=== PATIENT | female | born 1995 | race Caucasian/White ===

== ENCOUNTER 2017-03-17 22:07 | Emergency (ER) | payer OTHER ==
[2017-03-17 22:15] VITALS: BP 120/89; PULSE 89; RESP 16; O2SAT 99
[2017-03-17] MEDS ORDERED: HALOPERIDOL LACTATE 5 MG/ML AMP ONE (22:16)
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
[2017-03-17] MEDS ORDERED: HALOPERIDOL LACTATE 5 MG/ML AMP IM ONE (23:15)
[2017-03-17 23:19] LABS: AUTOMATED NEUTROPHIL # 8.8 TH/MM3 (1.8-7.7); BASOPHIL # 0.1 TH/MM3 (0-0.2); BASOPHIL % 0.6 % (0.0-2.0); EOSINOPHIL # 0.1 TH/MM3 (0-0.4); EOSINOPHIL % 0.8 % (0.0-4.0); HEMATOCRIT 41.2 % (35.0-46.0); HEMO FLAGS DIFF FINAL; LYMPH % 18.7 % (9.0-44.0); LYMPHOCYTE # 2.3 TH/MM3 (1.0-4.8); MEAN CELL VOLUME 89.3 FL (80.0-100.0); MEAN CORPUSCULAR HGB CONC 33.6 % (32.0-36.0); MONO % 9.3 % (0.0-8.0); NEUT % 70.6 % (16.0-70.0); PLATELET COUNT 268 TH/MM3 (150-450); RED BLOOD COUNT 4.62 MIL/MM3 (4.00-5.30); RED CELL DISTRIBUTION WIDTH 13.7 % (11.6-17.2); WHITE BLOOD COUNT 12.5 TH/MM3 (4.0-11.0)
[2017-03-17 23:32] LABS: ANION GAP 14 MEQ/L (5-15); BICARBONATE 19.8 MEQ/L (21.0-32.0); BLOOD UREA NITROGEN 16 MG/DL (7-18); CHLORIDE 107 MEQ/L (98-107); GLOMERULAR FILTRATION RATE 72 ML/MIN (>89); SODIUM (NA) 141 MEQ/L (136-145)
[2017-03-17 23:38] LABS: ACETAMINOPHEN LESS THAN 2.0 MCG/ML (10.0-30.0); ALCOHOL LESS THAN 3 MG/DL (0-5); BHCG SCREEN QUALITATIVE LESS THAN 1 MIU/ML (0-5)
[2017-03-18] MEDS ORDERED: POTASSIUM CHLORIDE 20 MEQ CONTROLLED RELEASE TAB PO ONE (00:30)
[2017-03-18 02:21] VITALS: BP 97/52; PULSE 73; RESP 16
--- NOTE | 2017-03-18 14:06 | PD ---
Physical Exam Time Seen by Provider: 14:04 Narrative Pt brought into ED under a CAGLE ACT. Evaluated and medically cleared by Dr. Lyman. Please refer to her documentation for further information regarding patient 's current visit. Data Data Last Documented VS Vital Signs Date Time Temp Pulse Resp B/P (MAP) Pulse Ox O2 Delivery O2 Flow Rate FiO2 03/18/17 12:45 03/18/17 02:21 73 16 Room Air 03/17/17 22:15 99 Orders Orders Haloperidol Inj (Haldol Inj) (03/17/17 22:16) Complete Blood Count With Diff (03/17/17 22:19) Basic Metabolic Panel (Bmp) (03/17/17 22:19) Psych Screen (03/17/17 22:19) Alcohol (Ethanol) (03/17/17 22:19) Salicylates (Aspirin) (03/17/17 22:19) Tylenol (Acetaminophen) (03/17/17 22:19) Bhcg Screen Qualitative (03/17/17 22:19) Haloperidol Inj (Haldol Inj) (03/17/17 23:15) Youth Officer / Telemetry ROGER.Q8H (03/17/17 23:08) Potassium Chloride (Kcl) (03/18/17 00:30) Labs Laboratory Tests Test 03/17/17 22:36 White Blood Count 12.5 TH/MM3 Red Blood Count 4.62 MIL/MM3 Hemoglobin 13.9 GM/DL Hematocrit 41.2 % Mean Corpuscular Volume 89.3 FL Mean Corpuscular Hemoglobin 30.0 PG Mean Corpuscular Hemoglobin Concent 33.6 % Red Cell Distribution Width 13.7 % Platelet Count 268 TH/MM3 Mean Platelet Volume 8.8 FL Neutrophils (%) (Auto) 70.6 % Lymphocytes (%) (Auto) 18.7 % Monocytes (%) (Auto) 9.3 % Eosinophils (%) (Auto) 0.8 % Basophils (%) (Auto) 0.6 % Neutrophils # (Auto) 8.8 TH/MM3 Lymphocytes # (Auto) 2.3 TH/MM3 Monocytes # (Auto) 1.2 TH/MM3 Eosinophils # (Auto) 0.1 TH/MM3 Basophils # (Auto) 0.1 TH/MM3 CBC Comment DIFF FINAL Differential Comment Blood Urea Nitrogen 16 MG/DL Creatinine 0.98 MG/DL Random Glucose 151 MG/DL Calcium Level 9.2 MG/DL Sodium Level 141 MEQ/L Potassium Level 3.0 MEQ/L Chloride Level 107 MEQ/L Carbon Dioxide Level 19.8 MEQ/L Anion Gap 14 MEQ/L Estimat Glomerular Filtration Rate 72 ML/MIN Beta HCG, Qualitative LESS THAN 1 MIU/ML Salicylates Level 3.2 MG/DL Acetaminophen Level LESS THAN 2.0 MCG/ML Ethyl Alcohol Level LESS THAN 3 MG/DL MDM Medical Record Reviewed: Yes Supervised Visit with CESARIO: No Narrative Course Pt has been seen and evaluated by psychiatry. Cagle Act has been lifted. Pt has no further medical needs to address. She will be discharged at this time. Diagnosis Primary Impression: Behavior concern in adult Additional Impression: Adjustment disorder Qualified Codes: F43.25 - Adjustment disorder with mixed disturbance of emotions and conduct Referrals: Primary Care Physician Psychiatrist Patient Instructions: General Instructions, Stress (ED) Additional Instruction: Follow up with primary care provider REturn immediately with any acute worsening of symptoms Med/Other Pt SpecificInfo: No Meds Exist/No RX given Scripts No Active Prescriptions or Reported Meds Disposition: 01 DISCHARGE HOME Condition: Stable Sunita Egan DIPESH Mar 18, 2017 14:06
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
== END 2017-03-18 16:07 | disposition home or self-care (01) ==
LOC: NEPC 22:07 → NEPJ 03-18 16:07
DX: F43.25 Adjustment disorder with mixed disturbance of emotions and conduct (principal); F91.9 Conduct disorder, unspecified; D72.829 Elevated white blood cell count, unspecified; E87.6 Hypokalemia
CPT/HCPCS: 80048; 80307; 84703; 85025; 96372; 99284; J1630